=== PATIENT | male | born 1940 | race Caucasian/White ===

== ENCOUNTER 2017-09-11 09:22 | Emergency (ER) | payer MEDICARE, BC ==
[~2017-09-11] VITALS: Ht 180.3 cm; Wt 92.7 kg
[2017-09-11 10:35] LABS: BASO % 1 % (0-3); EOS # 0.1 x10^3/uL (0.0-0.7); EOS % 2 % (0-3); HEMATOCRIT 42.7 % (39.0-53.0); HEMOGLOBIN 14.9 g/dL (13.0-17.5); LYMPH # 1.3 x10^3/uL (1.0-4.8); LYMPH % 18 % (24-48); MEAN CORPUSCULAR HEMOGLOBIN 32 pg (25-35); MEAN CORPUSCULAR HGB CONC 35 g/dL (31-37); MEAN CORPUSCULAR VOLUME 91 fL (79-100); MONO # 0.6 x10^3/uL (0.0-1.1); MONO % 8 % (0-9); NEUT % 72 % (31-73); PLATELET COUNT 234 x10^3/uL (140-400); RED BLOOD COUNT 4.72 x10^6/uL (4.30-5.70); RED CELL DISTRIBUTION WIDTH 13.1 % (11.5-14.5)
[2017-09-11 10:40] LABS: ALBUMIN/GLOBULIN RATIO 1.1 (1.0-1.7); CALCIUM 8.5 mg/dL (8.5-10.1); CREATININE 0.9 mg/dL (0.7-1.3); GFR 81.4; POTASSIUM 4.3 mmol/L (3.5-5.1); TOTAL BILIRUBIN 0.6 mg/dL (0.2-1.0); TOTAL PROTEIN 7.5 g/dL (6.4-8.2)
--- NOTE | 2017-09-11 10:42 | RAD ---
INDICATION: Constipation. TECHNIQUE: Upright and supine abdomen contains 3 images. No comparison is available. FINDINGS: There is minimal atelectasis or infiltrate in the left lung base. Pacemaker is noted. There is no free air. There is no dilated small bowel loop or air-fluid level. There is increased stool in the colon. There is mild levocurvature. There is mild suspected wedging of the L1 and L2 vertebral bodies. Correlate with any symptoms or prior exams. There are calcified phleboliths in the pelvis. IMPRESSION: Nonobstructive bowel gas pattern. Increased stool in the colon can be a finding of constipation. Electronically signed by: Jordan Last MD (09/11/2017 10:39 AM) [id number]
[2017-09-11] MEDS ORDERED: SODIUM PHOSPHATES 19/7GM 133 ML ENEMA. PR ONE (10:45)
--- NOTE | 2017-09-11 10:59 | PHYS DOC ---
Past History Past Medical History: A-Fib, Glaucoma, High Cholesterol, Hypertension, Other Past Surgical History: Pacemaker, Other Alcohol Use: Occasionally Drug Use: None Adult General Chief Complaint Chief Complaint: CONSTIPATION HPI HPI 77-year-old male patient without history of constipation complaining of constipation for the last 3 days and states he had a bowel movement 3 days ago and since then he didn't have any bowel movement and complaining of lower abdominal pressure feeling and rectal pain associated with mild abdominal distention and nausea and decrease of appetite. Patient denies starting new medication or taking pain medication. Patient states he usually has bowel movements once a day or once every other day without any problem. Patient denies abdominal surgery and nausea and vomiting, fever and chills, urinary symptom. Patient states he used suppository today without improvement of his condition. Review of Systems Review of Systems Constitutional: Denies fever or chills [] Eyes: Denies change in visual acuity, redness, or eye pain [] HENT: Denies nasal congestion or sore throat [] Respiratory: Denies cough or shortness of breath [] Cardiovascular: No additional information not addressed in HPI [] GI: Denies vomiting, bloody stools or diarrhea, reports abdominal pain and nausea and constipation [] : Denies dysuria or hematuria [] Musculoskeletal: Denies back pain or joint pain [] Integument: Denies rash or skin lesions [] Neurologic: Denies headache, focal weakness or sensory changes [] Endocrine: Denies polyuria or polydipsia [] All other systems were reviewed and found to be within normal limits, except as documented in this note. Current Medications Current Medications Current Medications Medications (Trade) Dose Ordered Sig/Jose G Start Time Stop Time Status Last Admin Dose Admin Sodium Biphosphate/ Sodium Phosphate (Fleet Adult) 133 ml 1X ONCE 09/11/17 10:45 09/11/17 10:47 DC Allergies Allergies Allergies Coded Allergies Type Severity Reaction Last Updated Verified Penicillins Allergy Severe Hives 03/06/15 No Physical Exam Physical Exam Constitutional: Well developed, well nourished, mild distress, non-toxic appearance. [] HENT: Normocephalic, atraumatic, oropharynx moist Eyes: PERRLA, EOMI, conjunctiva normal, no discharge. [] Neck: Normal range of motion, no tenderness, supple, no stridor. [] Cardiovascular:Heart rate regular rhythm, no murmur [] Lungs & Thorax: Bilateral breath sounds clear to auscultation [] Abdomen: Bowel sounds increased, soft, no tenderness, no masses, no pulsatile masses, mild abdominal distention. [Rectal exam with present of senior architectural designer showed decrease of anal sphincter tone with large amount of hard stool in the rectum, trying to break them with removing some stool but patient was not able to have any bowel movement after manipulation.] Skin: Warm, dry, no erythema, no rash. [] Back: No tenderness, no CVA tenderness. [] Extremities: No tenderness, no cyanosis, no clubbing, ROM intact, no edema. [] Neurologic: Alert and oriented X 3, normal motor function, normal sensory function, no focal deficits noted. [] Psychologic: Affect normal, judgement normal, mood normal. [] Current Patient Data Vital Signs Vital Signs Date Time Temp Pulse Resp B/P (MAP) Pulse Ox O2 Delivery O2 Flow Rate FiO2 09/11/17 09:22 97.9 53 20 96 Room Air Lab Results Laboratory Tests Test 09/11/17 10:16 White Blood Count 7.0 x10^3/uL (4.0-11.0) Red Blood Count 4.72 x10^6/uL (4.30-5.70) Hemoglobin 14.9 g/dL (13.0-17.5) Hematocrit 42.7 % (39.0-53.0) Mean Corpuscular Volume 91 fL (79-100) Mean Corpuscular Hemoglobin 32 pg (25-35) Mean Corpuscular Hemoglobin Concent 35 g/dL (31-37) Red Cell Distribution Width 13.1 % (11.5-14.5) Platelet Count 234 x10^3/uL (140-400) Neutrophils (%) (Auto) 72 % (31-73) Lymphocytes (%) (Auto) 18 % (24-48) L Monocytes (%) (Auto) 8 % (0-9) Eosinophils (%) (Auto) 2 % (0-3) Basophils (%) (Auto) 1 % (0-3) Neutrophils # (Auto) 5.0 x10^3uL (1.8-7.7) Lymphocytes # (Auto) 1.3 x10^3/uL (1.0-4.8) Monocytes # (Auto) 0.6 x10^3/uL (0.0-1.1) Eosinophils # (Auto) 0.1 x10^3/uL (0.0-0.7) Basophils # (Auto) 0.0 x10^3/uL (0.0-0.2) Sodium Level 138 mmol/L (136-145) Potassium Level 4.3 mmol/L (3.5-5.1) Chloride Level 102 mmol/L (98-107) Carbon Dioxide Level 27 mmol/L (21-32) Anion Gap 9 (6-14) Blood Urea Nitrogen 15 mg/dL (8-26) Creatinine 0.9 mg/dL (0.7-1.3) Estimated GFR (Cockcroft-Gault) 81.4 BUN/Creatinine Ratio 17 (6-20) Glucose Level 106 mg/dL (70-99) H Calcium Level 8.5 mg/dL (8.5-10.1) Total Bilirubin 0.6 mg/dL (0.2-1.0) Aspartate Amino Transferase (AST) 25 U/L (15-37) Alanine Aminotransferase (ALT) 40 U/L (16-63) Alkaline Phosphatase 68 U/L (46-116) Total Protein 7.5 g/dL (6.4-8.2) Albumin 4.0 g/dL (3.4-5.0) Albumin/Globulin Ratio 1.1 (1.0-1.7) EKG EKG [] Radiology/Procedures Radiology/Procedures [[address] [id number] IMAGING REPORT Signed PATIENT: ADAMS PANTOJA ACCOUNT: [id number] : 1940 LOCATION: ER AGE: 77 SEX: M EXAM STATUS: REG ER ORD. PHYSICIAN: BEAR MENENDEZ MD REASON: constipation PROCEDURE: ABDOMEN SUPINE & UPRIGHT INDICATION: Constipation. TECHNIQUE: Upright and supine abdomen contains 3 images. No comparison is available. FINDINGS: There is minimal atelectasis or infiltrate in the left lung base. Pacemaker is noted. There is no free air. There is no dilated small bowel loop or air-fluid level. There is increased stool in the colon. There is mild levocurvature. There is mild suspected wedging of the L1 and L2 vertebral bodies. Correlate with any symptoms or prior exams. There are calcified phleboliths in the pelvis. IMPRESSION: Nonobstructive bowel gas pattern. Increased stool in the colon can be a finding of constipation. Electronically signed by: Jordan Last MD (09/11/2017 10:39 AM) [id number] DICTATED AND SIGNED BY: JORDAN LAST MD DATE: 09/11/17 1034 CC: BEAR MENENDEZ MD; DI HARRIS MD ~ ] Course & Med Decision Making Course & Med Decision Making Pertinent Labs and Imaging studies reviewed. (See chart for details) Evaluation of patient in ER showed 77-year-old male patient with complaining of constipation for 3 days with fecal impaction in rectal exam with decrease of sphincter tone. Patient had digital manipulation and removing part of stool without S4 bowel movement. Patient had Fleet enema but because of decrease of his sphincter tone was not able to hold the enema inside and did not have any bowel movement. Labs was unremarkable. Plan discharge patient home with prescription of GoLYTELY and instruction to take one cup every 30 minutes and didn't have a bowel movement and increase fluid intake and follow up with his primary care physician. [] Dragon Disclaimer Dragon Disclaimer This electronic medical record was generated, in whole or in part, using a voice recognition dictation system. Departure Departure: Impression: Primary Impression: Constipation Additional Impressions: Fecal impaction Anal sphincter incompetence History of atrial fibrillation Disposition: HOME, SELF-CARE (At 1225) Condition: STABLE Referrals: DI HARRIS MD (PCP) Patient Instructions: Constipation, Adult Additional Instructions: Drink plenty of liquids Follow-up with your primary care physician in 2-3 days Return to ER if not getting better Scripts Peg 3350/Na Sulf,Bicarb,Cl/Kcl (GOLYTELY SOLUTION) 4,000 Ml Soln.recon 250 ML PO q30 minutes PRN for constipation, #1 BOT Prov: BEAR MENENDEZ MD 09/11/17 Problem Qualifiers BEAR MENENDEZ MD September 11, 2017 10:58
[2017-09-11] MEDS ORDERED: PEG4000S8 PO (12:27)
[2017-09-11 12:31] VITALS: BP 167/102
== END 2017-09-11 12:31 | disposition home or self-care (01) ==
LOC: ER 09:22
DX: K56.41 Fecal impaction (principal); I48.91 Unspecified atrial fibrillation; E78.00 Pure hypercholesterolemia, unspecified; I10 Essential (primary) hypertension; Z95.0 Presence of cardiac pacemaker; Z88.0 Allergy status to penicillin
CPT/HCPCS: 36415; 74021; 80053; 85025; 99285-25